=== PATIENT | male | born 1975 | race Caucasian/White ===

== ENCOUNTER 2022-03-08 00:03 | Emergency (ER) | payer MEDICAID ==
[~2022-03-08] VITALS: Ht 172.7 cm; Wt 79.4 kg
[2022-03-08 00:35] VITALS: BP 114/70
--- NOTE | 2022-03-08 00:38 | NUR ---
TO LOBBY A/W BED AMBULATORY
[2022-03-08] MEDS ORDERED: IBUPROFEN 600 MG TAB PO ONE (02:10)
[2022-03-08] MEDS ORDERED: ACETAMINOPHEN EXTRA STRENGTH 500 MG TAB PO ONE (02:10)
[2022-03-08] MEDS ORDERED: IBUP-2213 PO (02:19)
--- NOTE | 2022-03-08 02:31 | NUR ---
Patient discharged with v/s stable. Written and verbal after care instructions given and explained. Patient verbalized understanding. Ambulatory with steady gait. All questions addressed prior to discharge. Advised to follow up with PMD.
== END 2022-03-08 02:31 | disposition home or self-care (01) ==
LOC: MED 00:03
DX: M79.672 Pain in left foot (principal)
CPT/HCPCS: 99283